=== PATIENT | female | born 2005 | race Caucasian/White ===

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

== ENCOUNTER 2025-04-11 09:19 | Outpatient (CLI) | payer BC, SELFPAY ==
[2025-04-11 16:31] LABS: Chlamydia DNA Amplified* NOT DETECTED (No Detected); GC DNA Amplified* NOT DETECTED (No Detected)
== END 2025-04-11 09:20 | disposition home or self-care (01) ==
LOC: LKVREF 09:19
PROVIDERS: PCP Physician Assistant; Visit Provider Physician Assistant
DX: N89.8 Other specified noninflammatory disorders of vagina (principal); R30.0 Dysuria; R10.2 Pelvic and perineal pain; Z11.3 Encounter for screening for infections with a predominantly sexual mode of transmission
CPT/HCPCS: 87491; 87591

== ENCOUNTER 2025-04-18 13:56 | Outpatient (CLI) | payer BC, SELFPAY ==
--- NOTE | 2025-04-18 14:00 | CRLHL7_ITS ---
For Patients: As a result of the Century Cures Act, medical imaging exams and procedure reports are released immediately into your electronic medical record. You may view this report before your referring provider. If you have questions, please contact your health care provider. INDICATION: Generalized pelvic pain COMPARISON: 08/22/2024 TECHNIQUE: 2D barrett-scale and color Doppler images were acquired of the pelvis using a transabdominal and transvaginal approach. Transvaginal imaging performed to better visualize the endometrial stripe and ovaries. Spectral Doppler imaging of the ovaries also performed. FINDINGS: Sonographic images demonstrate a normal size and smooth outer contour of the uterus. Uterus measures 6.6 cm in length by 3.1 cm in AP diameter by 4.0 cm in transverse dimension. The myometrium has a normal uniform echotexture. The endometrial lining appears normal and measures 4.3 mm in composite thickness. The right ovary measures 3.7 x 2.0 x 2.4 cm in size and the left ovary measures 3.3 x 2.0 x 1.7 cm. The ovaries demonstrate normal arterial and venous blood flow on color Doppler analysis. There are no suspicious fluid collections within the cul-de-sac. Normal spectral Doppler evaluation of the ovaries. No torsion. IMPRESSION: Normal pelvic ultrasound. Dictated by Rohit Hernández MD @ 04/18/2025 3:28:40 PM (Electronically Signed)
== END 2025-04-18 13:57 | disposition home or self-care (01) ==
LOC: US 13:56
PROVIDERS: PCP Physician Assistant; Visit Provider Physician Assistant
DX: R10.2 Pelvic and perineal pain (principal)
CPT/HCPCS: 76830; 76856; 93976

== ENCOUNTER 2025-05-10 14:16 | Outpatient (CLI) | payer BC, SELFPAY ==
[2025-05-10 18:40] LABS: Bacterial Vaginosis* Negative (Negative); Candida glab/krus NOT DETECTED (No Detected)
== END 2025-05-10 14:17 | disposition home or self-care (01) ==
PROVIDERS: PCP Physician Assistant; Visit Provider Physician Assistant
DX: N76.0 Acute vaginitis (principal); B96.89 Other specified bacterial agents as the cause of diseases classified elsewhere
CPT/HCPCS: 81513; 87481; 87491; 87591; 87661

== ENCOUNTER 2025-06-23 14:00 | Outpatient (CLI) | payer BC, SELFPAY ==
[2025-06-23 23:23] LABS: Bacterial Vaginosis* Negative (Negative); Candida glab/krus NOT DETECTED (No Detected)
[2025-06-23 23:55] LABS: Chlamydia DNA Amplified* NOT DETECTED (No Detected); GC DNA Amplified* NOT DETECTED (No Detected)
== END 2025-06-23 14:01 | disposition home or self-care (01) ==
PROVIDERS: PCP Physician Assistant; Visit Provider Physician Assistant
DX: N89.8 Other specified noninflammatory disorders of vagina (principal); L68.0 Hirsutism
CPT/HCPCS: 81513; 82627; 84270; 84402; 84403; 84443; 87481; 87491; 87591; 87661

== ENCOUNTER 2025-08-04 15:06 | Outpatient (CLI) | payer BC, SELFPAY ==
[2025-08-04 18:54] LABS: Bacterial Vaginosis* Negative (Negative); Candida glab/krus NOT DETECTED (No Detected)
[2025-08-04 19:27] LABS: Chlamydia DNA Amplified* NOT DETECTED (No Detected); GC DNA Amplified* NOT DETECTED (No Detected)
== END 2025-08-04 15:07 | disposition home or self-care (01) ==
PROVIDERS: PCP Physician Assistant; Visit Provider Physician Assistant
DX: R30.0 Dysuria (principal); N89.8 Other specified noninflammatory disorders of vagina; N94.9 Unspecified condition associated with female genital organs and menstrual cycle
CPT/HCPCS: 81513; 87481; 87491; 87591; 87661